=== PATIENT | female | born 1990 | race African-American/Black ===

== ENCOUNTER 2023-04-15 18:57 | Emergency (ER) | payer OTHER ==
[~2023-04-15] VITALS: Ht 180.3 cm; Wt 74.8 kg
[2023-04-15] MEDS ORDERED: IOHEXOL 350 100 ML INFUS..BTL ONE (19:53)
[2023-04-15] MEDS ORDERED: SWABABLE VALVE TRANSFER SET EA MC ONE (19:53)
[2023-04-15] MEDS ORDERED: IV NORMAL SALINE 250 ML IV ONE (19:53)
[2023-04-15 19:58] LABS: CALCIUM 8.4 mg/dL (8.5-10.1); CARBON DIOXIDE 26 mmol/L (21-32); CHLORIDE 105 mmol/L (98-107); GLUCOSE 92 mg/dL (74-106); SODIUM SERUM 144 mmol/L (136-145); UREA NITROGEN, BLOOD 8 mg/dL (7-18)
[2023-04-15 20:15] LABS: BASOPHILS # (AUTO) 0.1 K/UL (0.0-0.2); BASOPHILS % (AUTO) 0.9 % (0.0-2.0); EOSINOPHILS % (AUTO) 0.6 % (0.0-7.0); HEMATOCRIT 29.4 % (31.2-41.9); HEMOGLOBIN 9.2 g/dL (10.9-14.3); LYMPHOCYTES # (AUTO) 1.8 K/uL (0.8-4.8); MEAN CORPUSCULAR HEMOGLOBIN 22.7 uug (24.7-32.8); MEAN CORPUSCULAR HGB CONC 31 g/dL (32.3-35.6); MEAN CORPUSCULAR VOLUME 72.9 fL (75.5-95.3); MONOCYTES # (AUTO) 0.3 K/uL (0.1-1.30); MONOCYTES % (AUTO) 3.6 % (0.0-11.0); NEUTROPHILS # (AUTO) 5.2 K/uL (1.8-8.9); NEUTROPHILS % (AUTO) 69.9 % (38.5-71.5); PLATELET COUNT (AUTO) 263 K/uL (179-408); RED BLOOD CELL COUNT(AUTO) 4.04 MIL/uL (3.63-4.92); RED CELL DISTRIBUTION WIDTH 21.8 % (12.3-17.7); WHITE BLOOD COUNT (AUTO) 7.4 K/uL (3.8-11.8)
[2023-04-15 20:17] LABS: DIFFERENTIAL COMMENT 1
[2023-04-15 23:28] VITALS: O2SAT 100
== END 2023-04-16 00:20 | disposition left against medical advice (07) ==
LOC: ER 19:00
DX: H54.62 Unqualified visual loss, left eye, normal vision right eye (principal); D64.9 Anemia, unspecified; R07.89 Other chest pain; F17.210 Nicotine dependence, cigarettes, uncomplicated; Z91.013 Allergy to seafood; Z91.048 Other nonmedicinal substance allergy status; Z20.822 Contact with and (suspected) exposure to COVID-19
CPT/HCPCS: 99285; 70496; 71045; 87426; 99406; 76512; 80048; 82962; 85025; 85730; 84484; 36415; 93005; 70498; 70450; Q9967; A4663